=== PATIENT | male | born 1960 ===

== ENCOUNTER 2024-09-14 05:00 | Day surgery (SDC) | payer OTHER ==
[2024-09-07 10:42] LABS: BASO % 0.7 % (0.1-1.2); EOS % 10.2 % (0.7-7.0); HEMOGLOBIN 14.8 g/dL (13.7-17.5); LYMPH # 1.15 (1.18-3.74); LYMPH % 16.7 % (19.3-53.1); MEAN CORPUSCULAR HEMOGLOBIN 32.9 pg (25.6-32.2); MONO # 0.86 (0.24-0.82); NEUT # 4.11 (1.56-6.13); NEUT % 59.6 % (34.0-71.1); PLATELET COUNT 183 K/uL (163-369); RED CELL DISTRIBUTION WIDTH 13.2 % (11.6-14.4)
[2024-09-07 10:43] LABS: URINE APPEARANCE Clear; URINE BILIRRUBIN Negative (NEGATIVE); URINE BLOOD Negative; URINE COLOR Dark Yellow; URINE GLUCOSE Negative (NEGATIVE); URINE KETONE Trace (NEGATIVE); URINE LEUKOCYTE Negative; URINE NITRATE Negative; URINE PROTEIN Negative (NEGATIVE)
[2024-09-07 10:45] LABS: URINE BACTERIA 34.2 uL (0.0-1933); URINE EPITHELIAL CELLS 3.9 uL (0.0-38.8); URINE RBC 19.1 uL (0.0-20.8)
[2024-09-07 10:47] LABS: MONO % 12.5 % (4.7-12.5)
[2024-09-07 11:03] LABS: URINE CAST 0.29 uL (0.0-1.40)
[2024-09-07 11:25] VITALS: BP 139/82
[2024-09-07 11:27] LABS: INR 1.16; PARTIAL THROMBOPLASTIN TIME 24.1 SECONDS (22.0-34.0); PROTHROMBIN TIME 12.5 SECONDS (9.0-11.5)
[2024-09-07 11:31] LABS: ALBUMIN 4.1 gm/dL (3.4-5.0); BILIRUBIN TOTAL 0.75 mg/dL (0.3-1.2); CALCIUM 9.2 mg/dL (8.5-10.1); CREATININE SERUM 0.78 mg/dL (0.70-1.30); GFR 100.85; GLOBULINA 3.2 G/DL (2.4-3.5); POTASSIUM 4.8 mEq/L (3.5-5.1); TOTAL PROTEIN 7.3 gm/dL (6.4-8.2)
[~2024-09-14] VITALS: Ht 170.2 cm; Wt 71.2 kg
[~2024-09-14 05:00] MED LIST: ANORO ELLIPTA1 EACH; LIPITOR20 MG; TOPROL XL25 M1; ZETIA10 MG
[2024-09-14] MEDS ORDERED: BUPIVACAINE HCL/MPF 0.5% 30ML VIAL ONE (07:02)
[2024-09-14] MEDS ORDERED: CEFAZOLIN SODIUM 1,000 MG VIAL ONE ×2 (07:02→09:45)
[2024-09-14] MEDS ORDERED: CEFAZOLIN SODIUM 1,000 MG VIAL IV SCH (09:30)
[2024-09-14] MEDS ORDERED: FAMOTIDINE/PF 20 MG/10 ML SYRINGE IV SCH (09:30)
[2024-09-14] MEDS ORDERED: MORPHINE SULFATE 4 MG/ML VIAL IV ONE ×2 (09:40→10:15)
[2024-09-14] MEDS ORDERED: FAMOTIDINE/PF 20 MG/2 ML VIAL ONE (09:45)
== END 2024-09-14 12:50 | disposition home or self-care (01) ==
LOC: CIR.AMB 05:00
PROVIDERS: ATTEND Specialist
DX: K40.90 Unilateral inguinal hernia, without obstruction or gangrene, not specified as recurrent (principal)